=== PATIENT | female | born 1985 | race Caucasian/White ===

== ENCOUNTER 2019-01-05 07:59 | Day surgery (SDC) | payer BC ==
[2018-12-30 12:58] LABS: CLARITY,URINE SLIGHTLY CLOUDY (Clear); COLOR,URINE YELLOW (Yellow); GLUCOSE, URINE NEGATIVE (Neg); KETONES,URINE NEGATIVE (Neg); LEUKOCYTE ESTERASE ,URINE SMALL (Neg); NITRITES, URINE NEGATIVE (Neg); OCCULT BLOOD,URINE NEGATIVE (Neg); PROTEIN,URINE NEGATIVE (Neg); UA COLLECTION TYPE CLN CATCH MIDSTREAM; UROBILINOGEN,URINE 0.2 E.U/dL (0.2-1.0)
[2018-12-30 13:13] LABS: SQUAMOUS EPITHELIAL CELL,UR MODERATE /LPF (FEW)
[2018-12-30 13:14] LABS: BACTERIA,URINE 2+ /HPF (Neg); RBC,URINE 0-2 /HPF (0-2)
[2018-12-30 13:17] LABS: BASOPHILS % (AUTO) 0.8 % (0-1); EOSINOPHILS # (AUTO) 0.1 X10'3 (0-0.9); EOSINOPHILS % (AUTO) 1.3 % (0-6); LYMPHOCYTES # (AUTO) 2.4 X10'3 (1.1-4.8); LYMPHOCYTES % (AUTO) 40.4 % (21-51); MEAN CORPUSCULAR HEMOGLOBIN 29.2 PG (27.0-31.0); MEAN CORPUSCULAR HGB CONC 33.6 g/dL (33.0-36.5); MEAN PLATELET VOLUME 7.4 FL (7.4-10.4); MONOCYTES # (AUTO) 0.3 X10'3 (0-0.9); MONOCYTES % (AUTO) 5.8 % (2-12); NEUTROPHILS % (AUTO) 51.7 % (42-75); PRE OP HEMATOCRIT 40.6 % (35.0-45.0); PRE OP HEMOGLOBIN 13.7 g/dL (12.0-16.0); PRE OP PLATELET COUNT 273 X10'3 (140-440); RED BLOOD COUNT 4.67 X10'6 (4.20-5.60); RED CELL DISTRIBUTION WIDTH 15.6 % (11.5-14.5)
[2018-12-30 13:21] LABS: MUCUS STRANDS FEW /LPF (Neg)
[2018-12-30 13:22] LABS: HCG SERUM QL NEGATIVE
[2018-12-30 13:27] LABS: ALBUMIN 4.2 G/DL (3.4-5.0); ALBUMIN/GLOBULIN RATIO 1.2 (1.1-1.5); ALKALINE PHOSPHATASE 52 IU/L (46-116); BLOOD UREA NITROGEN 7 MG/DL (7-18); BUN/CREATININE RATIO 9.3 (6.6-38.0); CALCIUM 9.1 MG/DL (8.5-10.1); CHLORIDE 105 MMOL/L (99-107); CREATININE 0.75 MG/DL (0.40-0.90); PRE OP ALT 42 U/L (30-65); PRE OP ANION GAP 8 (8-16); PRE OP AST 19 U/L (10-37); PRE OP BILIRUB, TOTAL 1.1 MG/DL (0.0-1.0); PRE OP GLUCOSE 96 MG/DL (70-104); PRE OP POTASSIUM 3.5 MMOL/L (3.4-5.1); PRE OP SODIUM 140 MMOL/L (135-145); TOTAL CARBON DIOXIDE 27.3 MMOL/L (24-32); TOTAL PROTEIN 7.6 G/DL (6.4-8.2); eGFR 89 ML/MIN
[2019-01-05] VITALS (8 sets, daily range): BP systolic 112–119; BP diastolic 58–74
[~2019-01-05] VITALS: Ht 170.2 cm; Wt 88.0 kg
[~2019-01-05 07:59] MED LIST: BUPIVAcaine/PF 2.5mg/ml (0.25%) 10ml vial ONE; ERGO500041 PO; cefotetan 2gm/isosm dext IVPB 50 ML IV ONE; epiNEPHrine 1 mg/ml inj ONE; famotidine 20mg tablet PO ONE; ringers solution, lacted 1,000 ML IV SCH
[2019-01-05] MEDS ORDERED: midazolam 2 mg/2 ml injection ONE (09:16)
[2019-01-05] MEDS ORDERED: rocuronium 10mg/ml inj IV ONE (09:16)
[2019-01-05] MEDS ORDERED: fentaNYL/PF 50MCG/1 ML 2ML syringe ONE (09:16)
[2019-01-05] MEDS ORDERED: LIDOcaine 2% (20mg/ml) 5ml vial ONE (09:16)
[2019-01-05] MEDS ORDERED: propofol inj 20 ML IV ONE (09:16)
[2019-01-05] MEDS ORDERED: sevoflurane 250ml liquid IH ONE (10:05)
[2019-01-05] MEDS ORDERED: ringers solution, lacted 1,000 ML IV SCH (10:46)
[2019-01-05] MEDS ORDERED: proCHLORperazine 10 MG/2 ml inj IV PRN (10:50)
[2019-01-05] MEDS ORDERED: morphine 4 MG/ML inj SYRINge IV PRN ×2 (10:50)
[2019-01-05] MEDS ORDERED: meperidine/PF 25mg/ml syringe IV PRN ×3 (10:50)
[2019-01-05] MEDS ORDERED: ondansetron/PF 4mg/2ml inj IV PRN (10:50)
--- NOTE | 2019-01-05 11:08 | NUR ---
Received from OR via [facility] , accompanied by Anesthesiologist EDWARDO and report given by Anesthesiolgist. PATIENT WITH 20G PIV IN LEFT UE RUNNING LR AT 100. NON VERBAL AT THIS TIME. 2 LAP SITES TO ABDOMEN THAT ARE DERMABONDED CLOSED WITH NO DRAINAGE. IDALMIS PAD PRESENT. 10L MASK ON WITH 100% SATURATIONS. LEA SHEARER APPLIED. Addendum: 01/05/19 at 1117 by Bert Gilmore RN, RN Amended: Links added.
[2019-01-05] MEDS ORDERED: HYDROmorphone inj. 0.5 MG/0.5 ML DISP.SYRIN IV PRN ×2 (11:35)
[2019-01-05] MEDS ORDERED: ketorolac trometh. 30mg/ml inj. IV ONE (11:35)
[2019-01-05] MEDS ORDERED: glycopyrrolate 0.2mg/ml inj ONE (11:39)
[2019-01-05] MEDS ORDERED: ondansetron/PF 4mg/2ml inj ONE (11:39)
[2019-01-05] MEDS ORDERED: neostigmine methylsulfate 1 MG/ML 10ml vial ONE (11:39)
[2019-01-05] MEDS ORDERED: dexamethasone sod phosphate 4mg/ml inj. ONE (11:39)
--- NOTE | 2019-01-05 12:08 | NUR ---
ALL DC CRITERIA HAS BEEN MET. IV TAKEN OUT WITHOUT COMPLICATIONS. ALL INSTRUCTIONS COVERED AND ALL QUESTIONS ANSWERED. DRESSINGS CDI. OUT VIA WHEELCHAIR TO PERSONAL VEHICLE WHERE PATIENT WAS SECURED IN AND DRIVEN HOME BY FAMILY. DRESSINGS STILL CDI. MOTHER LAZARUS HERE AND ASSISTED PATIENT IN GETTING DRESSED. VSS. PAIN TOLERABLE AT THIS TIME. WISHES TO GO HOME. STATES THAT SHE DOES NOT NEED TO VOID PRIOR TO LEAVING. Addendum: 01/05/19 at 1228 by Bert Baeza - REEMA BENAVIDEZ Amended: Links added.
== END 2019-01-05 12:08 | disposition home or self-care (01) ==
LOC: PAS 07:59
PROVIDERS: ATTEND Obstetrics & Gynecology Obstetrics
DX: Z30.2 Encounter for sterilization (principal); F41.9 Anxiety disorder, unspecified; F32.9 Major depressive disorder, single episode, unspecified; D64.9 Anemia, unspecified; Z98.890 Other specified postprocedural states; Z79.899 Other long term (current) drug therapy; Z88.8 Allergy status to other drugs, medicaments and biological substances
CPT/HCPCS: 36415; 58670; 80053; 81001; 82948; 84703; 85025; 86885; 86900; 86901; 87088; J0171; J1100; J1170; J1885; J2001; J2175; J2250; J2270; J2405; J2704; J2710; J3010; J3490; J7120; A7000